=== PATIENT | female | born 1955 | race Caucasian/White ===

== ENCOUNTER 2018-07-27 20:05 | Emergency (ER) | payer MEDICARE, SELFPAY ==
[2018-07-27 20:06] VITALS: BP 191/93; PULSE 87; RESP 17; TEMP 37; O2SAT 97; BMI 26.5
--- NOTE | 2018-07-27 20:25 | EKG12_ITS ---
Test Reason : HYPERTENSION Blood Pressure : / mmHG Vent. Rate : 085 BPM Atrial Rate : 085 BPM P-R Int : 184 ms QRS Dur : 080 ms QT Int : 368 ms P-R-T Axes : 048 005 035 degrees QTc Int : 437 ms Normal sinus rhythm Normal ECG Confirmed by KOBI JONES, DEDRICK ([id number]), newspaper managing editor VILLA SANCHEZ ([id number]) on 07/29/2018 3:45:36 PM Referred By: ROBERTA Confirmed By:DEDRICK PEACE MD
[2018-07-27 20:52] VITALS: BP 152/90; PULSE 92; RESP 18; O2SAT 98
--- NOTE | 2018-07-27 20:55 | RAD_ITS ---
STUDY: X-RAY CHEST REASON FOR EXAM: Female, 63 years old. Hypertension. Cold symptoms. TECHNIQUE: PA and lateral views of the chest. COMPARISON: None. FINDINGS: Telemetry wires overlie the chest. The lungs are clear and expanded. There is no demonstrated pleural abnormality. Normal size heart. Normal mediastinum and esha. Normal visualized pulmonary arteries. Normal visualized aortic arch and descending thoracic aorta. There is straightening of the normal kyphosis of the thoracic spine. Normal visualized ribs, clavicles, and shoulders. There is no demonstrated abnormality of the visualized soft tissue structures of the upper abdomen. RAD/Chest PA and Lateral IMPRESSION: No acute cardiopulmonary disease. Electronically Signed: Kendall Kim DO at 21:15 EST Tel [phone], Service support ,
[2018-07-27 21:03] LABS: Absolute Lymphocyte Count 1.98 X10^3/ul (0.83-4.51); Absolute Neutrophil Count 3.3 X10^3/uL (2.0-7.7); Basophil# 0.03 X10^3/uL; Basophil% 0.5 % (0-1); Eosinophil# 0.23 X10^3/uL; Eosinophils% 3.6 % (0-5); Hematocrit 41.1 % (37-47); Hemoglobin 13.6 g/dl (12.0-15.0); Lymphocyte # 1.98 X10^3/ul (4.0); Lymphocyte % 30.9 % (19-41); Mean Corp Hgb Conc 33.1 g/gl (32-36); Mean Corpuscular Hgb 29.8 pg (27.0-32.0); Mean Corpuscular Volume 90.1 fL (81-99); Mean Platelet Vol. 9.6 fl (6.2-12.0); Monocyte# 0.89 X10^3/uL; Monocyte% 13.9 % (0-10); Neutrophil # 3.25 X10^3/uL (2.7-7.7); Neutrophil % 50.8 % (47-70); Platelet Count 270 K/mm3 (150-450); RBC Distribution Width CV 14.6 % (11.6-14.6); RBC Distribution Width SD 47.6 fl (35.1-43.9); Red Blood Count 4.56 M/mm3 (4.2-5.4); White Blood Count 6.4 K/mm3 (4.4-11.0)
[2018-07-27 21:04] LABS: POSITIVE COUNT NO; POSITIVE DIFFERENTIAL NO; POSITIVE MORPHOLOGY NO
[2018-07-27 21:19] LABS: Anion Gap 8 (5-15); BUN 17 mg/dL (7-18); Calcium,Total 8.6 mg/dL (8.5-10.1); Chloride 108 mmol/L (98-107); Creatinine, Serum 1.13 mg/dL (0.55-1.02); EST Glomerular Filtration Rate 51 mL/min (>60); Est Glom Filt Rate - Afr Amer 62 mL/min (>60); Estimated Creatinine Clearance 41.06 ml/min; Glucose 99 mg/dL (74-106); Potassium 3.7 mmol/L (3.5-5.1); Sodium Level 143 mmol/L (136-145)
--- NOTE | 2018-07-27 22:00 | ED.VISSUMM ---
- ER Visit Summary Date of Service: 07/27/18 Chief Complaint: [High blood pressure] History of Present Illness: The patient is a 63 F [resents to the emergency department complaint of hypertension noted at the urgent care and referred to the emergency department. Patient states that she normally has blood pressure with systolic in the 140s however at the urgent care visit today her systolic blood pressure was in the 180s and before she left there was over 200. Patient denies any headache. She describes some chest congestion and discomfort related to a cough that she has had for 2 days. Cough is been nonproductive. She denies any fevers. Patient's been taking benzo night, Claritin, and guaifenesin. Patient has no medical history otherwise.] Physical Examination: [HEENT-PERRLA, EOMI. Cranial nerves II through XII grossly intact. TMs clear. Mucous membranes moist. No adenopathy. Cardiovascular-regular rate and rhythm without murmur or ectopy Lungs-clear to auscultation, chest wall stable without crepitus or subcu emphysema Abdomen-normoactive bowel sounds, soft, nontender, no rebound or rigidity, no peritoneal signs. Neuro tmry-avxjab-xtaj and heel blanco testing within normal limits, negative Romberg, negative pronator drift, fundi benign Extremities-intact ?4, normal range of motion, normal pulses, atraumatic] Test Results: [EKG obtained on arrival shows sinus rhythm with a ventricular rate of 85 bpm with no acute I segment changes. CBC with differential was normal. Chemistries were normal. Troponin was less than 0.015.] Chest x-ray showed nothing acute. Emergency Department Course and Treatment: [Without any treatment in the emergency department her last blood pressure in the 150 systolic.] Treatment Plan: [Patient advised to discontinue her home remedies for cough. At this point I suspect she likely has a viral URI and some of her hypertension may be related to the medication she was taking for her cold. I do not feel patient needs an antibiotic.] I will write patient for Barney Victoria. Patient advised to keep a journal of her blood pressures over the next week and follow-up with her primary care physician in the office. Disposition: [Discharged home in stable condition.] Impression: [Viral URI Hypertension] This note was generated with [employer] software. It may contain incorrect words, spelling, and punctuation that were not noted in review of the chart prior to signing ED Disposition - Plan for ED Patient: Chief Complaint: Hypertension Referrals: Katie Flynn MD [Primary Care Provider] -
--- NOTE | 2018-07-27 22:03 | ED.DCSUM_ITS ---
- ER Visit Summary Date of Service: 07/27/18 Chief Complaint: [High blood pressure] History of Present Illness: The patient is a 63 F [resents to the emergency department complaint of hypertension noted at the urgent care and referred to the emergency department. Patient states that she normally has blood pressure with systolic in the 140s however at the urgent care visit today her systolic blood pressure was in the 180s and before she left there was over 200. Patient denies any headache. She describes some chest congestion and discomfort related to a cough that she has had for 2 days. Cough is been nonproductive. She denies any fevers. Patient's been taking benzo night, Claritin, and guaifene sin. Patient has no medical history otherwise.] Physical Examination: [HEENT-PERRLA, EOMI. Cranial nerves II through XII grossly intact. TMs clear. Mucous membranes moist. No adenopathy. Cardiovascular-regular rate and rhythm without murmur or ectopy Lungs-clear to auscultation, chest wall stable without crepitus or subcu emphysema Abdomen-normoactive bowel sounds, soft, nontender, no rebound or rigidity, no peritoneal signs. Neuro xwhq-xokbid-aial and heel blanco testing within normal limits, negative Romberg, negative pronator drift, fundi benign Extremities-intact ?4, normal range of motion, normal pulses, atraumatic] Test Results: [EKG obtained on arrival shows sinus rhythm with a ventricular rate of 85 bpm with no acute I segment changes. CBC with differential was normal. Chemistries were normal. Troponin was less than 0.015.] Chest x-ray showed nothing acute. Emergency Department Course and Treatment: [Without any treatment in the emergency department her last blood pressure in the 150 systolic.] Treatment Plan: [Patient advised to discontinue her home remedies for cough. At this point I suspect she likely has a viral URI and some of her hypertension may be related to the medication she was taking for her cold. I do not feel patient needs an antibiotic.] I will write patient for Barney Victoria. Patient advised to keep a journal of her blood pressures over the next week and follow-up with her primary care physician in the office. Disposition: [Discharged home in stable condition.] Impression: [Viral URI Hypertension] This note was generated with [employer] software. It may contain incorrect words, spelling, and punctuation that were not noted in review of the chart prior to signing ED Disposition - Plan for ED Patient: Chief Complaint: Hypertension Referrals: Katie Flynn MD [Primary Care Provider] -
--- NOTE | 2018-07-27 22:03 | ED.DEP ---
ED Disposition - Plan for ED Patient: Chief Complaint: Hypertension Instructions: ED Upper Resp Infec No Abx Tx, ED Hypertension Poss Prescriptions: Benzonatate [Tessalon Perle] 200 mg PO TID PRN PRN #20 cap PRN Reason: Cough Referrals: Katie Flynn MD [Primary Care Provider] - 5-7 Days
[2018-07-27 22:18] VITALS: BP 171/114; RESP 76; TEMP -8.8; TEMP 16
== END 2018-07-27 22:25 | disposition home or self-care (01) ==
LOC: ED 20:38
PROVIDERS: Emergency Provider Emergency Medicine; Family Provider Internal Medicine; PCP Internal Medicine
DX: J06.9 Acute upper respiratory infection, unspecified (principal); I10 Essential (primary) hypertension; Z79.899 Other long term (current) drug therapy
CPT/HCPCS: 71046; 80048; 84484; 85025; 93005; 99284; A4216

== ENCOUNTER 2020-03-05 17:04 | Emergency (ER) | payer MEDICARE, OTHER, SELFPAY ==
[2020-03-05 17:05] VITALS: BP 125/78; PULSE 70; RESP 18; TEMP 36.2; O2SAT 95; BMI 27.2
--- NOTE | 2020-03-05 17:23 | RAD_ITS ---
STUDY: X-RAY - RIGHT KNEE REASON FOR EXAM: Female, 64 years old. Knee pain worsening today, no known injury. TECHNIQUE: 4 view(s) of the knee. COMPARISON: None. FINDINGS: Normal visualized distal femur. Normal visualized proximal tibia and fibula. Normal proximal tibiofibular articulation. 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 There is mild degenerative arthrosis of the lateral femorotibial compartment. There is mild degenerative arthrosis of the patellofemoral articulation. The soft tissue structures are unremarkable. RAD/Knee 4 or More Views IMPRESSION: Mild arthrosis Electronically Signed: Дмитрий Gross MD at 17:56 EDT , Service support ,
--- NOTE | 2020-03-05 18:22 | ED.DCSUM_ITS ---
- ER Visit Summary Date of Service: 03/05/20 Chief Complaint: Right knee pain History of Present Illness: The patient is a 64 F with right knee pain for months. It has been worse of the past week because school started and she has been moving more. The pain is in her anterior right knee inferiorly and med ially. No direct injury. She did fracture it and required surgery 30 years ago. No redness, warmth, swelling. No history of blood clots. No calf pain. Physical Examination: Afebrile and vital signs unremarkable. Inspection is unremarkable. Tenderness to palpation over the right knee anteriorly, inferiorly, and medially. No laxity. Good range of motion. Neurovascular intact distally. Test Results: X-rays show moderate arthritis, but nothing acute. Emergency Department Course and Treatment: X-rays are unremarkable for anything acute. Patient declined pain medicine here. She was treated with Uri wrap, anti-inflammatories, referred to orthopedics for follow-up. Treatment Plan: As above Disposition: Discharge Impression: Right knee pain This note was generated with [email or web address] dictation software. It may contain incorrect words, spelling, and punctuation that were not noted in review of the chart prior to signing ED Disposition - Plan for ED Patient: Referrals: Katie Flynn MD [Primary Care Provider] -
--- NOTE | 2020-03-05 18:23 | ED.DEP ---
ED Disposition - Plan for ED Patient: Instructions: ED Sprain Knee Prescriptions: Ibuprofen [Motrin] 800 mg PO TID PRN PRN #20 tab PRN Reason: Pain Or Fever Prescription Printed Referrals: Morales Oquendo MD [STAFF PHYSICIAN] -
== END 2020-03-05 18:56 | disposition home or self-care (01) ==
LOC: ED 17:52
PROVIDERS: Emergency Provider Emergency Medicine; PCP Internal Medicine
DX: M25.561 Pain in right knee (principal)
CPT/HCPCS: 73564; 99282

== ENCOUNTER → 2020-10-16 12:25 | Outpatient (CLI) | payer MEDICARE, OTHER, SELFPAY ==
[2020-10-16 15:22] LABS: Absolute Neutrophil Count 3.6 X10^3/uL (2.0-7.7); Basophil# 0.06 X10^3/uL; Basophil% 0.9 % (0-1); Eosinophil# 0.19 X10^3/uL; Eosinophils% 2.7 % (0-5); Hematocrit 43.9 % (37-47); Hemoglobin 14.5 g/dL (12.0-15.0); Lymphocyte % 35.8 % (19-41); Mean Corpuscular Hgb 29.8 pg (27.0-32.0); Mean Corpuscular Volume 90.1 fL (81-99); Mean Platelet Vol. 10.8 fl (6.2-12.0); Monocyte# 0.65 X10^3/uL; Monocyte% 9.3 % (0-10); NRBC Flagged by Analyzer 0 % (0-5); Neutrophil # 3.55 X10^3/uL (2.7-7.7); Neutrophil % 50.9 % (47-70); Platelet Count 331 K/mm3 (150-450); RBC Distribution Width CV 14.4 % (11.6-14.6); RBC Distribution Width SD 47.8 fl (35.1-43.9); Red Blood Count 4.87 M/mm3 (4.2-5.4)
[2020-10-16 15:44] LABS: Anion Gap 4 (5-15); BUN 20 mg/dL (7-18); BUN/Creat Ratio 25.2 RATIO (10-20); Calcium,Total 9.6 mg/dL (8.5-10.1); Chloride 108 mmol/L (98-107); EST Glomerular Filtration Rate 77 mL/min (>60); Est Glom Filt Rate - Afr Amer 93 mL/min (>60); Ferritin 109 ng/mL (8-252); Glucose 95 mg/dL (74-106); Potassium 4.1 mmol/L (3.5-5.1); Sodium Level 139 mmol/L (136-145); T4 Free Direct 0.76 ng/dL (0.76-1.46); Thyroid Stim Hormone (TSH) 6.09 uIU/mL (0.358-3.74)
[2020-10-18 09:11] LABS: Thyroid Peroxidase AB < 9 IU/mL (0-34)
== END ==
PROVIDERS: PCP Internal Medicine; Referring Provider Physician Assistant; Visit Provider Physician Assistant
DX: D64.9 Anemia, unspecified (principal); L71.8 Other rosacea; L82.1 Other seborrheic keratosis; L73.8 Other specified follicular disorders; L72.0 Epidermal cyst; L65.9 Nonscarring hair loss, unspecified
CPT/HCPCS: 36415; 80048; 82728; 84439; 84443; 85025; 86038; 86376

== ENCOUNTER → 2021-11-25 | Outpatient (CLI) | payer MEDICARE, OTHER, SELFPAY | END | disposition home or self-care (01) | PROVIDERS: PCP Internal Medicine | DX: R06.83 Snoring (principal); R40.0 Somnolence; G47.33 Obstructive sleep apnea (adult) (pediatric) | CPT/HCPCS: 95810 ==